=== PATIENT | female | born 1965 | race American Indian/Alaskan Native ===

== ENCOUNTER 2024-06-28 22:00 | Emergency (ER) | payer OTHER ==
[~2024-06-28] VITALS: Ht 165.1 cm; Wt 85.0 kg
[2024-06-28] MEDS ORDERED: OMEPRAZOLE20 M2 PO (22:28)
[2024-06-28] MEDS ORDERED: TETRACAINE HCL 0.5% 4 ML BTL OU SCH (22:30)
[2024-06-28] MEDS ORDERED: ERYTHROMYCIN 3.5 GM HOME.PACK OP ONE (22:45)
[2024-06-28 22:51] VITALS: BP 131/93
== END 2024-06-28 22:53 | disposition home or self-care (01) ==
LOC: ED 22:00
DX: T15.01XA Foreign body in cornea, right eye, initial encounter (principal); M19.90 Unspecified osteoarthritis, unspecified site; W44.9XXA Unspecified foreign body entering into or through a natural orifice, initial encounter; Z88.5 Allergy status to narcotic agent
CPT/HCPCS: 65222; 99283